=== PATIENT | female | born 1960 | race Caucasian/White ===

== ENCOUNTER 2016-09-29 06:52 | Day surgery (SDC) | payer OTHER ==
[~2016-09-29] VITALS: Ht 162.6 cm; Wt 89.4 kg
[~2016-09-29 06:52] MED LIST: DAILY MULTIPLE1 EACH PO; EFFEXOR XR150 MG PO; FLONASE16 G1 BOTH NARES; PRIMROSE OIL PO
[2016-09-29 07:57] VITALS: BP 142/68
[2016-09-29 10:40] VITALS: BP 146/85
[2016-09-29 11:35] VITALS: BP 141/75
== END 2016-09-29 12:05 | disposition home or self-care (01) ==
LOC: SDC 06:52
PROC: 0UDB8ZX Extraction of Endometrium, Via Natural or Artificial Opening Endoscopic, Diagnostic (ICD-10-PCS; principal; 2016-09-29)
DX: N84.0 Polyp of corpus uteri (principal); N95.0 Postmenopausal bleeding; Z87.891 Personal history of nicotine dependence; Z82.49 Family history of ischemic heart disease and other diseases of the circulatory system; Z80.1 Family history of malignant neoplasm of trachea, bronchus and lung; Z80.0 Family history of malignant neoplasm of digestive organs
CPT/HCPCS: 88305; J0690; J1100; J1885; J2250; J2405; J3010